=== PATIENT | female | born 1955 | race Caucasian/White ===

== ENCOUNTER 2017-09-28 11:26 | Observation (INO) ==
--- NOTE | 2017-09-28 11:50 | Emergency Department Note ---
Disposition Clinical Impression: SVT (supraventricular tachycardia) Chest pain Qualifiers: Chest pain type: unspecified Qualified Code(s): R07.9 - Chest pain, unspecified Disposition: Admitted As Inpatient Condition: Fair Referrals: Veronika Wheatley MD [Primary Care Provider] - Time of Disposition: 13:35 Arrhythmia/Palpitations HPI - General Chief Complaint: ED Arrhythmia/Palpitations Stated Complaint: SVT Time Seen by Provider: 09/28/17 11:39 Source: patient, EMS Mode of arrival: EMS Limitations: no limitations Nursing Notes Reviewed: Yes Vital Signs Reviewed: Yes - History of Present Illness HPI Narrative: 62-year-old who comes in complaining of some chest tightness, with heart racing pain in her jaw and near syncopal symptoms. A squad arrived of a placed her on a monitor and she was in SVT with a elevated heart rate. They gave her 6 mg of the [place] without improvement they gave her 12 mg of [place] with conversion to sinus. Patient had resolution of her symptoms. Patient did have a thyroid biopsy 1 week ago. Pt Subjective Complaint: rapid heart beat, "heart racing" Onset (ago): Just [employer] Duration: constant Severity: moderate Context: occurred during rest Arrhythmia History: other (Patient had an episode a few years back which had a rapid heartbeat but she does not know the details concerning it.) Associated symptoms: Reports: chest pain Treatments prior to arrival: adenosine - Related Data Home Medications Medication Instructions Recorded Confirmed Amitriptyline [Elavil] 25 mg PO HS 10/21/16 09/28/17 Aspirin [Aspirin] 81 mg PO DAILY 10/21/16 09/28/17 Atorvastatin [Lipitor] 40 mg PO HS 10/21/16 09/28/17 Cholecalciferol (Vitamin D3) 1,000 unit PO DAILY 10/21/16 09/28/17 [Vitamin D] FLUoxetine HCl [PROzac] 20 mg PO DAILY 10/21/16 09/28/17 Lactobacillus Acidophilus 1 cap PO DAILY 10/21/16 09/28/17 [Acidophilus] Meloxicam 15 mg PO DAILY 10/21/16 09/28/17 Mv-Mn/FA/Vit K/Lycop/Lut/Coq10 1 cap PO DAILY 10/21/16 09/28/17 [Daily Multivitamin Capsule] Omeprazole [PriLOSEC] 40 mg PO BID 10/21/16 09/28/17 Potassium Chloride [K-Tab ER] 20 meq PO BID 10/21/16 09/28/17 Spironolactone [Aldactone] 50 mg PO DAILY 10/21/16 09/28/17 Calcium Carbonate/Vitamin D3 1 tab PO BID 11/10/16 09/28/17 [Calcium 600-Vit D3 800 Tablet] Calcium Polycarbophil [Fiber-Caps] 625 mg PO BID 11/10/16 09/28/17 [place]-3S/Dha/Epa/Fish Oil [Fish 1 cap PO DAILY 11/10/16 09/28/17 Oil 1,200 mg Softgel] Albuterol Sulfate [Albuterol 2 puff IH Q6H PRN 12/18/16 09/28/17 Inhaler] DiphenhydraMINE [Benadryl] 25 mg PO Q6HR PRN 02/19/17 09/28/17 Fluticasone Propionate [Flovent 2 puff IH DAILY 09/22/17 09/28/17 Diskus] Ipratropium/Albuterol Neb [Duoneb] 3 ml IH BID 09/22/17 09/28/17 Metoprolol [Lopressor] 50 mg PO DAILY 09/28/17 09/28/17 Umeclidinium [place] [Incruse 1 puff IH DAILY 09/28/17 09/28/17 Ellipta] Allergies Allergy/AdvReac Type Severity Reaction Status Date / Time Hydromorphone [From Dilaudid] Allergy Difficulty Verified 09/28/17 14:05 Breathing levofloxacin [From Levaquin] Allergy See Verified 09/28/17 14:05 Comments Penicillins Allergy Rash Verified 09/28/17 14:05 Tetracycline Allergy Rash Verified 09/28/17 14:05 acetaminophen [From Vicodin] AdvReac Itching Verified 09/28/17 14:05 codeine AdvReac Itching Verified 09/28/17 14:05 fentanyl AdvReac Itching Verified 09/28/17 14:05 hydrocodone [From Vicodin] AdvReac Itching Verified 09/28/17 14:05 morphine AdvReac Itching Verified 09/28/17 14:05 All systems ED: reviewed and negative except as stated. Constitutional: Denies: fever, chills, weakness, weight change Eyes: Denies: eye pain, eye discharge, vision change ENT ED: Denies: ear pain, throat pain, dental pain, hearing loss, epistaxis, congestion, dysphagia Cardiovascular: Reports: palpitations. Denies: chest pain, dyspnea on exertion , edema, syncope Respiratory: Denies: cough, dyspnea, wheezes, hemoptysis, stridor Gastrointestinal: Denies: abdominal pain, nausea, vomiting, diarrhea, constipation, hematemesis, melena, hematochezia Genitourinary: Denies: dysuria, frequency, hematuria, discharge Musculoskeletal: Denies: back pain, neck pain, arthralgia, myalgia Integumentary: Denies: rash, abrasion, lesions Neurological: Denies: headache, weakness, numbness, paresthesias, confusion, abnormal gait, vertigo Psychiatric: Denies: anxiety, depression, suicidal thoughts, homicidal thoughts , auditory hallucinations, visual hallucinations Endocrine: Denies: fatigue Hematological/Lymphatic: Denies: easy bleeding, easy bruising Allergic/Immunologic: Denies: facial swelling, urticaria Past Medical History - Past Medical History Medical history: Reports: arthritis, fibromyalgia, GERD, hyperlipidemia, hypertension Surgical history: Reports: appendectomy, cholecystectomy, hysterectomy, other Psychiatric history: Reports: anxiety, depression - Social History Smoking Status: Current every day smoker Smokeless Tobacco Status: No Alcohol use: Reports: none Drug use: Reports: none Physical Exam - General Limitations: no limitations General appearance: alert, in no apparent distress - Head Head exam: atraumatic, normocephalic, normal inspection - Eye Eye exam: Present: normal appearance, PERRL, EOMI - ENT ENT exam: normal exam, normal oropharynx, mucous membranes moist - Neck Neck exam: Present: normal inspection, full ROM, trachea midline - Chest Chest inspection: Present: normal inspection, symmetric chest wall rise - Respiratory Respiratory exam: Present: normal lung sounds bilaterally - Cardiovascular Cardiovascular exam: Present: regular rate, normal rhythm, tachycardia - Abdominal Exam Abdominal exam: Present: soft, Non-Tender. Absent: tenderness, distention, guarding, rebound, rigidity - Extremities Exam Extremities exam: Present: normal inspection, full ROM. Absent: tenderness, pedal edema - Expanded Lower Extremity Exam Neurovascular/Tendon exam: Absent: motor deficit, sensory deficit, tendon deficit Gait: observed and normal - Back Exam Back exam: Present: normal inspection, full ROM. Absent: tenderness - Neurological Exam Neurological exam: Present: alert, oriented X3 - Psychiatric Psychiatric exam: Present: normal affect, normal mood - Skin Skin exam: Present: warm, dry, intact, normal color Course - Reevaluation(s) Reevaluation #1: 62-year-old who has multiple risk factors who developed SVT and with the SVT had chest pain into her neck. Rotation obtained with cardiology who feels that if she was active and prior to the episode that she could likely go home however the patient states she is not very active she recently had surgery for removal part of her lung which has resulted in her always being short of breath. Also she is going to be admitted to rule out cardiac etiology chest discomfort. Time: 13:34 - Consultations Consultation #1: Discussed with , he states that if the patient is very active and has no pain or shortness of breath prior to this episode she can likely go home however the patient is not active just recently had lung surgery and is always short of breath due to that sort of go ahead and admit with consultation to cardiology. Time: 13:33 Consultation #2: Discussed with Dr. Portillo, admit. Time: 14:28 Vital Signs Temperature 98.2 F 09/28/17 11:31 Pulse Rate 94 09/28/17 11:31 Respiratory Rate 12 09/28/17 11:31 Blood Pressure 127/90 09/28/17 11:31 O2 Sat by Pulse Oximetry 96 09/28/17 11:31 Temperature 98.2 F 09/28/17 11:31 Pulse Rate 78 09/28/17 12:54 Respiratory Rate 15 09/28/17 12:54 Blood Pressure 106/78 09/28/17 12:54 O2 Sat by Pulse Oximetry 97 09/28/17 12:54 Oxygen Delivery Oxygen Delivery Room Air Arrhythmia/Palpitations - Lab Data Result diagrams: 09/28/17 12:00 09/28/17 12:00 Lab Results 09/28/17 09/28/17 09/28/17 Range/Units 12:00 12:00 12:00 WBC 4.7 (4.3-11.1) K/mcL RBC 4.52 (3.82-4.97) M/mcL Hgb 13.4 (11.5-15.4) g/dL Hct 39.9 (35.3-44.9) % MCV 88.3 (83.0-100.0) fL MCH 29.6 (28.0-33.3) pg MCHC 33.6 (31.6-35.5) g/dL RDW 13.2 (11.5-14.5) % Plt Count 249 (140-400) K/mcL MPV 10.6 (9.4-12.4) fL Immature Gran % 0.2 (0-4) % Seg Neutrophils % 56.2 % Lymphocytes % 31.8 % Monocytes % 8.6 % Eosinophils % 2.6 % Basophils % 0.6 % Neutrophils # 2.6 (1.6-8.9) K/mcL Lymphocytes # 1.5 (0.6-4.6) K/mcL Monocytes # 0.4 (0.0-1.3) K/mcL Eosinophils # 0.1 (0.0-0.6) K/mcL Basophils # 0.0 (0.0-0.2) K/mcL PT 11.3 (9.4-12.1) Seconds INR 1.1 APTT 30.5 (26.0-36.0) Seconds Sodium (136-145) mEq/L Potassium (3.5-5.1) mEq/L Chloride (98-107) mEq/L Carbon Dioxide (23-29) mEq/L BUN (8-23) mg/dL Creatinine (0.60-1.20) mg/dL Est GFR ( Amer) (> 60) Est GFR (Non-Af Amer) (> 60) BUN/Creatinine Ratio (6-26) Glucose (70-105) mg/dL Calculated Osmolality (280-300) Calcium (8.6-10.3) mg/dL Troponin I (< 0.04) ng/mL TSH 1.371 (0.340-5.600) mcIU/mL 09/28/17 Range/Units 12:00 WBC (4.3-11.1) K/mcL RBC (3.82-4.97) M/mcL Hgb (11.5-15.4) g/dL Hct (35.3-44.9) % MCV (83.0-100.0) fL MCH (28.0-33.3) pg MCHC (31.6-35.5) g/dL RDW (11.5-14.5) % Plt Count (140-400) K/mcL MPV (9.4-12.4) fL Immature Gran % (0-4) % Seg Neutrophils % % Lymphocytes % % Monocytes % % Eosinophils % % Basophils % % Neutrophils # (1.6-8.9) K/mcL Lymphocytes # (0.6-4.6) K/mcL Monocytes # (0.0-1.3) K/mcL Eosinophils # (0.0-0.6) K/mcL Basophils # (0.0-0.2) K/mcL PT (9.4-12.1) Seconds INR APTT (26.0-36.0) Seconds Sodium 138 (136-145) mEq/L Potassium 4.5 (3.5-5.1) mEq/L Chloride 105 (98-107) mEq/L Carbon Dioxide 25 (23-29) mEq/L BUN 14 (8-23) mg/dL Creatinine 0.82 (0.60-1.20) mg/dL Est GFR ( Amer) > 60 (> 60) Est GFR (Non-Af Amer) > 60 (> 60) BUN/Creatinine Ratio 17 (6-26) Glucose 94 (70-105) mg/dL Calculated Osmolality 286 (280-300) Calcium 9.9 (8.6-10.3) mg/dL Troponin I 0.03 (< 0.04) ng/mL TSH (0.340-5.600) mcIU/mL
[2017-09-28 12:18] LABS: Basophils % 0.6 %; Eosinophils # 0.1 K/mcL (0.0-0.6); Eosinophils % 2.6 %; Hematocrit 39.9 % (35.3-44.9); Hemoglobin 13.4 g/dL (11.5-15.4); Immature Granulocytes % 0.2 % (0-4); Lymphocytes # 1.5 K/mcL (0.6-4.6); Lymphocytes % 31.8 %; Mean Corpuscular HGB Conc 33.6 g/dL (31.6-35.5); Mean Corpuscular Hemoglobin 29.6 pg (28.0-33.3); Mean Corpuscular Volume 88.3 fL (83.0-100.0); Mean Platelet Volume 10.6 fL (9.4-12.4); Monocytes # 0.4 K/mcL (0.0-1.3); Monocytes % 8.6 %; Neutrophils # 2.6 K/mcL (1.6-8.9); Platelet Count 249 K/mcL (140-400); Red Blood Count 4.52 M/mcL (3.82-4.97); Red Cell Distribution Width 13.2 % (11.5-14.5); Segmented Neutrophils % 56.2 %
[2017-09-28 12:24] LABS: INR 1.1; Prothrombin Time 11.3 Seconds (9.4-12.1)
[2017-09-28 12:26] LABS: Activated Partial Thrombo Time 30.5 Seconds (26.0-36.0)
[2017-09-28 12:44] LABS: Troponin I 0.03 ng/mL (< 0.04)
[2017-09-28 12:45] LABS: BUN/Creatinine Ratio 17 (6-26); Blood Urea Nitrogen 14 mg/dL (8-23); Calcium 9.9 mg/dL (8.6-10.3); Carbon Dioxide 25 mEq/L (23-29); Chloride 105 mEq/L (98-107); Glucose 94 mg/dL (70-105); Osmolality,Calculated 286 (280-300); Potassium 4.5 mEq/L (3.5-5.1); Sodium 138 mEq/L (136-145); eGFR For African Americans > 60 (> 60); eGFR For Non-African Americans > 60 (> 60)
[2017-09-28] MEDS ORDERED: Naloxone 0.4 MG/ML INJ IVP PRN (15:31)
[2017-09-28] MEDS ORDERED: Nitroglycerin 0.4 MG TAB.SUBL SL PRN (15:39)
--- NOTE | 2017-09-28 16:58 | Electrocardiograph Report ---
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
--- NOTE | 2017-09-28 17:32 | Internal Med History&Physical ---
Date of Encounter: 09/28/17 Time of Encounter: 14:00 Assessment and Plan (1) Chest pain Current visit: Yes Status: Acute Acute chest pressure that pt. reports extends across her chest and radiates to her bilateral neck and jaws. States this has also happened before. Pt. takes daily aspirin but denies previous cardiac hx of SD or stents. Previous echocardiogram in 2016 showed normal LV chamber size, wall thickness, and systolic function. LVEF 65%. Normal right ventricular structure and function. No evidence of intracardiac shunting with agitated saline contrast. No significant valvular dysfunction. No evidence of pulmonary hypertension. Initial troponin <0.03. Trend x2. Aspirin. Lipitor 80 mg now. Nitro SL PRN. Echocardiogram ordered. Bilateral carotid Doppler imaging ordered. Cardiology consult ordered and I appreciate the consult. Will defer stress test recommendation to Cardiology d/t SVTs. NPO at midnight in case of a.m. stress test. Pt. reports preference for pharm stress test d/t RUL lobectomy d/t lung cancer and SOB. Pt. discussed w/Dr. Portillo who agrees w/plan of care. Pt. is high risk for cardiac event based on current sx, SVTs, hx, and risk factors. Observation. Qualifiers: Chest pain type: other chest pain Qualified Code(s): R07.89 - Other chest pain; R07.8 - Other chest pain (2) SVT (supraventricular tachycardia) Current visit: Yes Status: Acute Acute SVT that began this morning. Pt. reports previous sx in 2009. Pt. given adenosine dosing x2 in squad and converted to sinus rhythm. Cardiology consulted and I appreciate the consult. Repeat EKG. Echocardiogram ordered. (3) GERD (gastroesophageal reflux disease) Current visit: Yes Status: Chronic Hx of chronic GERD. Continue pts. Prilosec. Qualifiers: Esophagitis presence: esophagitis presence not specified Qualified Code(s) : K21.9 - Gastro-esophageal reflux disease without esophagitis (4) HTN (hypertension) Current visit: Yes Status: Chronic Hx of chronic HTN. Monitor pt. and VS. Continue pts. Spironolactone and Lopressor. Qualifiers: Hypertension type: essential hypertension Qualified Code(s): I10 - Essential (primary) hypertension (5) HLD (hyperlipidemia) Current visit: Yes Status: Chronic Hx of chronic HLD. Lipid panel in a.m. labs. Continue pts. Lipitor. Qualifiers: Hyperlipidemia type: pure hypercholesterolemia Qualified Code(s): E78.00 - Pure hypercholesterolemia, unspecified; E78.0 - Pure hypercholesterolemia (6) Arthritis Current visit: Yes Status: Chronic Hx of chronic arthritis and fibromyalgia. Continue pts. Meloxicam. (7) Anxiety and depression Current visit: Yes Status: Chronic Hx of chronic anxiety and depression. Continue pts. Prozac and Elavil. (8) Hx of cancer of lung Current visit: Yes Status: Resolved Hx of lung cancer requiring lobectomy of RUL. Pt. reports SOB associated w/ lobectomy. Supplemental O2 and SpO2 monitoring PRN. If stress test ordered by Cardiology, pt. prefers pharmacological testing d/t SOB. Continue pts. DuoNebs and inhalers. (9) DVT prophylaxis Current visit: Yes Status: Acute Heparin 5,000 units SQ Q8 for DVT prophylaxis. Monitor pt. for signs of bleeding. Internal Medicine - H&P: HPI Chief complaint: Heart arrhythmia/Palpitations Admitted From: Emergency Dept Plans for Post Hospital Care: Home History of present illness: Ms. Dos Santos is a 62 year old female w/PMH of arthritis, fibromyalgia, GERD, hyperlipidemia, hypertension, thyroid nodules, and history of lung cancer requiring an upper right lobectomy presents from the ED w/chief complaint of heart palpitations and arrhythmia that began at 9:30 a.m. today. Pt. reports previous sx in 2009. Pt. also reports chest pressure across her chest w/ radiation to bilateral neck and jaws. Pt. reports squad gave her two rounds of adenosine w/conversion to sinus after second dose. Pt. reports thyroid biopsy 1 week ago for nodules and previous lobectomy of RUL of lung for lung cancer. Pt. reports smoking 1.5 PPD and quitting in November 2016. Pt. denies recent illness, fever, chills, nausea, vomiting, changes in vision, headache, cough, unusual bleeding, abdominal pain, diarrhea, constipation, numbness, tingling, dizziness , lightheadedness, pre-syncope, or syncope. Past Med Surg Social Fam HX - Past Medical History Source: patient, old records reviewed, obtained from family Medical history: arthritis, fibromyalgia, GERD, hyperlipidemia, hypertension Psychiatric history: anxiety, depression - Past Surgical History Surgical History: appendectomy, cholecystectomy, hysterectomy (Total), other - Social History Smoking Status: Former smoker Packs per day: 1.5 PPD - Reports quitting in November 2016 Smokeless Tobacco Status: No Alcohol use: none Drug use: none Current living situation: Home, With Family Activity Level: Independent ambulation Recent Out of Country Travel Within the Last 8 Weeks: No Exposure or Possible Exposure to Illness During Travel: No - Family History Mother Race: Family Member Ethnicity: Non- Living Status: Age at : 69 Cause of : Colon cancer Hx Family Cancer: Yes (Colon) Hx Family GI Disorders: Yes (Colon cancer) Father Race: Family Member Ethnicity: Non- Living Status: Age at : 76 Cause of : Chronic lymphocytic leukemia Hx Family Cardiac Disorders: Yes (HD, aortic regurgitation) Hx Family Respiratory Disorders: Yes (Asthma) Hx Family Cancer: Yes (CLL) Sister Race: Family Member Ethnicity: Non- Living Status: Still Living Hx Family Cardiac Disorders: Yes (Aortic regurgitation) Hx Family Musculoskeletal Disorders: Yes (Psoriatic arthritis) Internal Medicine - H&P: Meds Amitriptyline [Elavil] 25 mg PO HS 10/21/16 [History] Aspirin [Aspirin] 81 mg PO DAILY 10/21/16 [History] Atorvastatin [Lipitor] 40 mg PO HS 10/21/16 [History] Cholecalciferol (Vitamin D3) [Vitamin D] 1,000 unit PO DAILY 10/21/16 [History] FLUoxetine HCl [PROzac] 20 mg PO DAILY 10/21/16 [History] Lactobacillus Acidophilus [Acidophilus] 1 cap PO DAILY 10/21/16 [History] Meloxicam 15 mg PO DAILY 10/21/16 [History] Mv-Mn/FA/Vit K/Lycop/Lut/Coq10 [Daily Multivitamin Capsule] 1 cap PO DAILY 10/21 [History] Omeprazole [PriLOSEC] 40 mg PO BID 10/21/16 [History] Potassium Chloride [K-Tab ER] 20 meq PO BID 10/21/16 [History] Spironolactone [Aldactone] 50 mg PO DAILY 10/21/16 [History] Calcium Carbonate/Vitamin D3 [Calcium 600-Vit D3 800 Tablet] 1 tab PO BID [History] Calcium Polycarbophil [Fiber-Caps] 625 mg PO BID 11/10/16 [History] [place]-3S/Dha/Epa/Fish Oil [Fish Oil 1,200 mg Softgel] 1 cap PO DAILY 11/10/16 [ History] Albuterol Sulfate [Albuterol Inhaler] 2 puff IH Q6H PRN 12/18/16 [History] DiphenhydraMINE [Benadryl] 25 mg PO Q6HR PRN 02/19/17 [History] Fluticasone Propionate [Flovent Diskus] 2 puff IH DAILY 09/22/17 [History] Ipratropium/Albuterol Neb [Duoneb] 3 ml IH BID 09/22/17 [History] Metoprolol [Lopressor] 50 mg PO DAILY 09/28/17 [History] Umeclidinium [place] [Incruse Ellipta] 1 puff IH DAILY 09/28/17 [History] 3 Allergy/AdvReac Type Severity Reaction Status Date / Time Hydromorphone [From Dilaudid] Allergy Difficulty Verified 09/28/17 14:05 Breathing levofloxacin [From Levaquin] Allergy See Verified 09/28/17 14:05 Comments Penicillins Allergy Rash Verified 09/28/17 14:05 Tetracycline Allergy Rash Verified 09/28/17 14:05 acetaminophen [From Vicodin] AdvReac Itching Verified 09/28/17 14:05 codeine AdvReac Itching Verified 09/28/17 14:05 fentanyl AdvReac Itching Verified 09/28/17 14:05 hydrocodone [From Vicodin] AdvReac Itching Verified 09/28/17 14:05 morphine AdvReac Itching Verified 09/28/17 14:05 All Systems PM: A 10-system review of systems was performed and is negative for pertinent findings except as documented above in the HPI. - Constitutional Constitutional: no chills, no fever(s), no night sweats - EENT Eyes: no change in vision, no discharge, no pain, no photophobia Ears: no ear discharge, no ear pain, no tinnitus Nose, mouth and throat: no dysphagia, no nasal discharge, no neck pain, no sore throat - Breasts Breasts: as per HPI - Cardiovascular Cardiovascular ROS IM: chest pain (Pressure across chest w/radiation to bilateral neck and jaws.), irregular heart rhythm, palpitations, no diaphoresis , no dyspnea, no lightheadedness, no syncope - Respiratory Respiratory: no cough, no dyspnea, no wheezing, no excessive phlegm production - Gastrointestinal Gastrointestinal: no abdominal pain, no diarrhea, no hematemesis, no hematochezia, no melena, no nausea, no vomiting - Genitourinary Genitourinary: no change in urinary stream, no dysuria, no flank pain, no hematuria Menstruation: as per HPI, post hysterectomy (Total) - Musculoskeletal Musculoskeletal ROS IM: no numbness, no tingling - Integumentary Integumentary IM: no rash, no unusual bruising - Neurological Neurological ROS: no confusion, no convulsions, no focal weakness, no numbness, no tingling, no tremor(s) - Psychiatric Psychiatric: as per HPI, anxiety, depression - Endocrine Endocrine IM: as per HPI - Hematologic/Lymphatic Hematologic/Lymphatic: no easy bruising - Allergic/Immunologic Allergic/Immunologic: as per HPI - Constitutional Vitals: Temp Pulse Resp BP Pulse Ox 98.1 F 74 17 138/89 94 09/28/17 15:49 09/28/17 15:49 09/28/17 15:49 09/28/17 15:49 09/28/17 15:49 General appearance: Present: cooperative, A&O X 3, morbidly obese, pleasant, no acute distress, answers questions appropriately - Head Head exam: Present: atraumatic, normocephalic - Eye Eye exam: Present: PERRL, conjuntiva pink, sclera anicteric Pupils: Present: PERRL - ENT ENT exam: Present: normal exam - Neck Neck exam general surgery: Present: normal inspection, supple, trachea midline. Absent: lymphadenopathy - Respiratory Respiratory exam: Present: CTAB. Absent: accessory muscle use, rales, rhonchi, wheezes - Cardiovascular Cardiovascular exam: Present: RRR, +S1, +S2. Absent: diastolic murmur, gallop, rubs, systolic murmur - GI/Abdominal GI/Abdominal exam: Present: normal bowel sounds, soft, no peritoneal signs. Absent: distended, tenderness - Rectal Rectal exam: Present: deferred - Additional comments: exam deferred. - Extremities Exam Extremities exam: Present: pedal edema, warm, radial pulses palpable and symmetrical. Absent: calf tenderness, cyanotic - Back Exam Back exam: Present: normal inspection - Neurological Exam Neurological exam: Present: CN II-XII intact, oriented X3, no focal deficits. Absent: pronater drift, facial droop, speech deficit - Psychiatric Psychiatric exam: Present: normal affect, normal mood - Skin Skin exam: Present: dry, intact Internal Med - H&P Results - Labs CBC & Chem 7: 09/28/17 12:00 09/28/17 12:00 - EKG Data EKG shows normal: sinus rhythm - EKG Data Prior EKG available for review: yes Interpretation IM: normal EKG EKG comments: 09/28/17 17:40 EKG dated 09/10/15 shows sinus rhythm. EKG dated 09/28/17 shows sinus rhythm and normal ECG. - Diagnostic Studies Chest x-ray Additional comments: Impressions Chest X-Ray 09/28/17 11:47 IMPRESSION: No acute abnormality. D/ / Darvin Muñiz MD / Darvin Muñiz MD Interpreting Provider: Darvin Muñiz MD
[2017-09-28] MEDS ORDERED: *HR* Heparin 5,000 UNIT/ML VIAL IVP PRN ×2 (18:37)
[2017-09-28] MEDS ORDERED: *HR* Heparin 5,000 UNIT/ML VIAL IVP ONE (18:37)
[2017-09-28] MEDS: Heparin 25,000 UNIT/500 ML D5W 25,000 UNIT/500 ML BAG IVC SCH (19:21)
[2017-09-28] MEDS: Ipratropium/Albuterol Neb 3 ML IH SCH (19:49)
[2017-09-28] MEDS ORDERED: *HR* Heparin 5,000 UNIT/ML VIAL SQ SCH (22:00)
[2017-09-29 01:01] LABS: Basophils % 0.5 %; Eosinophils # 0.2 K/mcL (0.0-0.6); Eosinophils % 2.5 %; Hematocrit 38.5 % (35.3-44.9); Hemoglobin 13.1 g/dL (11.5-15.4); Immature Granulocytes % 0.3 % (0-4); Lymphocytes # 2.8 K/mcL (0.6-4.6); Lymphocytes % 46.2 %; Mean Corpuscular Volume 88.3 fL (83.0-100.0); Mean Platelet Volume 10.6 fL (9.4-12.4); Monocytes # 0.7 K/mcL (0.0-1.3); Monocytes % 11.5 %; Neutrophils # 2.4 K/mcL (1.6-8.9); Platelet Count 242 K/mcL (140-400); Red Blood Count 4.36 M/mcL (3.82-4.97); Red Cell Distribution Width 13.3 % (11.5-14.5)
[2017-09-29 01:31] LABS: Alanine Aminotransferase 41 Units/L (7-52); Albumin 4.4 g/dL (3.5-5.7); Albumin/Globulin Ratio 1.8 (1.1-2.2); Alkaline Phosphatase 70 Units/L (34-104); Aspartate Amino Transferase 26 Units/L (13-39); BUN/Creatinine Ratio 16 (6-26); Bilirubin,Total 0.6 mg/dL (0.3-1.0); Blood Urea Nitrogen 15 mg/dL (8-23); Carbon Dioxide 27 mEq/L (23-29); Chloride 104 mEq/L (98-107); Chol/HDL Ratio 2.6 (0-4.9); Cholesterol 138 mg/dL (< 200); Globulin 2.4 g/dL (2.4-3.5); Glucose 94 mg/dL (70-105); HDL Cholesterol 53 mg/dL (40-59); LDL Cholesterol,Calculated 52 mg/dL (0-99); Magnesium 1.9 mg/dL (1.6-2.6); Osmolality,Calculated 289 (280-300); Potassium 3.8 mEq/L (3.5-5.1); Sodium 139 mEq/L (136-145); Total Protein 6.8 g/dL (6.4-8.9); Triglycerides 165 mg/dL (< 150); eGFR For African Americans > 60 (> 60); eGFR For Non-African Americans > 60 (> 60)
[2017-09-29] MEDS: Beclomethasone 80mcg MDI IH SCH ×2 (08:01→19:42)
[2017-09-29] MEDS: Ipratropium/Albuterol Neb 3 ML IH SCH ×2 (08:01→19:42)
--- NOTE | 2017-09-29 09:46 | Cardiology Consult Note ---
<Blanche Bray - Last Filed: 09/29/17 10:43> Date of Encounter: 09/29/17 Time of Encounter: 09:20 Assessment and Plan (1) Chest pain Current Visit: Yes Status: Acute Chest pain that was retrosternal and radiated to neck. Associated lightheadedness, diaphoresis, blurry vision. Was in SVT at the time that converted back to sinus rhythm after adenosine 6mg and 12mg. PMH HTN, HLD, RUL lobectomy due to lung cancer. Reported [facility] in 2009 with no stents, she had palpitations then too. ECHO 2016: LVEF 65%, no significant valvular dysfunction or pulmonary hypertension Troponin 0.03, 0.19, 0.13 (trending down) -Echo and carotid doppler are pending -stress test ordered -continue heparin Qualifiers: Chest pain type: other chest pain Qualified Code(s): R07.89 - Other chest pain; R07.8 - Other chest pain (2) SVT (supraventricular tachycardia) Current Visit: Yes Status: Acute Acute SVT that was converted back to sinus rhythm after given adenosine 6mg and 12mg (3) HTN (hypertension) Current Visit: Yes Status: Chronic blood pressure stable continue home meds of asa, aldactone, lopressor Qualifiers: Hypertension type: essential hypertension Qualified Code(s): I10 - Essential (primary) hypertension (4) HLD (hyperlipidemia) Current Visit: Yes Status: Chronic continue home lipitor Qualifiers: Hyperlipidemia type: pure hypercholesterolemia Qualified Code(s): E78.00 - Pure hypercholesterolemia, unspecified; E78.0 - Pure hypercholesterolemia Discussion w patient/family: The assessment and plan as outlined above was discussed with the patient and/or family members who expressed understanding and agreement. All questions were answered. Thank you for involving us in the care of your patient. Please call with any questions. History of Present Illness Consult date: 09/29/17 Requesting physician: Jamie Mar Consult reason: Chest pain into jaw during SVT, multiple risk factors. Chief complaint: palpitations History of present illness: Ms. Dos Santos is a 62 year old female HTN, HLD, lung cancer with RUL lobectomy in 11/2016 who presented to [facility] complaining of heart palpitations. She stated that is happened in the afternoon while she was doing laundry. She later went to an urgent care where EMS was called due to tachycardia. She was found to be in SVT and was given adenosine 6mg and 12mg after which to converted back to sinus rhythm. She reported having chest pressure with radiation to neck. She was also having associated lightheadedness, diaphoresis. She reported in 2009 she had palpitations and ended up having a heart cath but no stents were placed. She had a thyroid nodule biopsy 8 days ago. She denies having chest pain or palpitations on a regular basis. EKG in ED was normal sinus rhythm. Troponin 0.03, 0.19. Patient was started on heparin. Past Med Surg Social Fam HX - Past Medical History Medical history: arthritis, fibromyalgia, GERD, hyperlipidemia, hypertension Psychiatric history: anxiety, depression - Past Surgical History Surgical History: appendectomy, cholecystectomy, hysterectomy (Total), other - Social History Smoking Status: Former smoker Packs per day: 1.5 PPD - Reports quitting in November 2016 Smokeless Tobacco Status: No Alcohol use: none Drug use: none - Family History Mother Race: Family Member Ethnicity: Non- Living Status: Age at : 69 Cause of : Colon cancer Hx Family Cardiac Disorders: No Hx Family Respiratory Disorders: No Hx Family Cancer: Yes (Colon) Hx Family GI Disorders: Yes (Colon cancer) Hx Family Genitourinary Disorders: No Hx Family Endocrine Disorder: No Hx Family Musculoskeletal Disorders: No Hx Family Neuromuscular Disorders: No Hx Family Neurologic Disorders: No Hx Family HEENT Disorders: No Hx Family Autoimmune Disorders: No Hx Family Reproductive Disorders: No Hx Family Psychosocial Disorders: No Hx Family Medical Disorders: No Father Race: Family Member Ethnicity: Non- Living Status: Age at : 76 Cause of : Chronic lymphocytic leukemia Hx Family Cardiac Disorders: Yes (HD, aortic regurgitation) Hx Family Respiratory Disorders: Yes (Asthma) Hx Family Cancer: Yes (CLL) Sister Race: Family Member Ethnicity: Non- Living Status: Still Living Hx Family Cardiac Disorders: Yes (Aortic regurgitation) Hx Family Musculoskeletal Disorders: Yes (Psoriatic arthritis) Medications and Allergies Amitriptyline [Elavil] 25 mg PO HS 10/21/16 [History] Aspirin [Aspirin] 81 mg PO DAILY 10/21/16 [History] Atorvastatin [Lipitor] 40 mg PO HS 10/21/16 [History] Cholecalciferol (Vitamin D3) [Vitamin D] 1,000 unit PO DAILY 10/21/16 [History] FLUoxetine HCl [PROzac] 20 mg PO DAILY 10/21/16 [History] Lactobacillus Acidophilus [Acidophilus] 1 cap PO DAILY 10/21/16 [History] Meloxicam 15 mg PO DAILY 10/21/16 [History] Mv-Mn/FA/Vit K/Lycop/Lut/Coq10 [Daily Multivitamin Capsule] 1 cap PO DAILY 10/21 [History] Omeprazole [PriLOSEC] 40 mg PO BID 10/21/16 [History] Potassium Chloride [K-Tab ER] 20 meq PO BID 10/21/16 [History] Spironolactone [Aldactone] 50 mg PO DAILY 10/21/16 [History] Calcium Carbonate/Vitamin D3 [Calcium 600-Vit D3 800 Tablet] 1 tab PO BID [History] Calcium Polycarbophil [Fiber-Caps] 625 mg PO BID 11/10/16 [History] [place]-3S/Dha/Epa/Fish Oil [Fish Oil 1,200 mg Softgel] 1 cap PO DAILY 11/10/16 [ History] Albuterol Sulfate [Albuterol Inhaler] 2 puff IH Q6H PRN 12/18/16 [History] DiphenhydraMINE [Benadryl] 25 mg PO Q6HR PRN 02/19/17 [History] Fluticasone Propionate [Flovent Diskus] 2 puff IH DAILY 09/22/17 [History] Ipratropium/Albuterol Neb [Duoneb] 3 ml IH BID 09/22/17 [History] Metoprolol [Lopressor] 50 mg PO DAILY 09/28/17 [History] Umeclidinium [place] [Incruse Ellipta] 1 puff IH DAILY 09/28/17 [History] 3 Allergy/AdvReac Type Severity Reaction Status Date / Time Hydromorphone [From Dilaudid] Allergy Difficulty Verified 09/28/17 14:05 Breathing levofloxacin [From Levaquin] Allergy See Verified 09/28/17 14:05 Comments Penicillins Allergy Rash Verified 09/28/17 14:05 Tetracycline Allergy Rash Verified 09/28/17 14:05 acetaminophen [From Vicodin] AdvReac Itching Verified 09/28/17 14:05 codeine AdvReac Itching Verified 09/28/17 14:05 fentanyl AdvReac Itching Verified 09/28/17 14:05 hydrocodone [From Vicodin] AdvReac Itching Verified 09/28/17 14:05 morphine AdvReac Itching Verified 09/28/17 14:05 All Systems Review: The remainder of the systems were reviewed and are negative - Constitutional Constitutional: no chills, no fever(s), no headache(s) - EENT Eyes: no blurred vision - Cardiovascular Cardiovascular: diaphoresis, lightheadedness, palpitations, no chest pain with exertion - Respiratory Respiratory: cough - Gastrointestinal Gastrointestinal: no abdominal pain, no nausea - Integumentary Integumentary: no erythema - Neurological Neurological: no dizziness, no memory loss Physical Examination Vital Signs, Last 4 Hours Temp Pulse Resp BP Pulse Ox 09/29/17 07:05 98.3 F 74 16 116/73 94 General: Conversant, No Apparent Distress HEENT: Atraumatic, Mucus Membranes Moist Neck: No JVD Cardiac: Reg Rate and Rhythm Lungs: Normal Breath Sounds Neuro: Alert and responsive, No focal deficits noted Abdomen: Soft, Non-Tender Skin: No rashes noted on visualized skin Musculoskeletal: No Chest Wall Tenderness Extremities: No Edema Results 09/29/17 00:22 09/29/17 00:22 Lab Results 09/28/17 09/29/17 09/29/17 17:27 00:22 00:22 WBC 6.1 Hgb 13.1 Hct 38.5 Plt Count 242 APTT Sodium Potassium Chloride Carbon Dioxide BUN Creatinine Glucose Calcium Magnesium Total Bilirubin AST ALT Alkaline Phosphatase Troponin I 0.19 H* 0.13 H* 09/29/17 09/29/17 09/29/17 00:22 00:22 08:09 WBC Hgb Hct Plt Count APTT 64.2 H D 69.8 H Sodium 139 Potassium 3.8 Chloride 104 Carbon Dioxide 27 BUN 15 Creatinine 0.92 Glucose 94 Calcium 10.0 Magnesium 1.9 Total Bilirubin 0.6 AST 26 ALT 41 Alkaline Phosphatase 70 Troponin I Consult Discharge Plan - Plan Referrals: Veronika Wheatley MD [Primary Care Provider] - <Jose Marrero - Last Filed: 09/29/17 11:56> Date of Encounter: 09/29/17 - Attending Attestation I examined this patient and my medical decision-making was reviewed with the Resident Physician. I agree with the documented findings, disposition and treatment plan as described except to the extent set forth below. 62 YOF with known SVT presented with longer than nml episode associated with SOB , and chest pain. Tropnins elevated to .19 and on downtrend now. Likely reentrant tachycardia since converted with adenosine. Patients strips not available to review. Currently she is on a BB, will titrate up as tolerated and EP consult as an OP. Patient is on inhalers for COPD and will liklely benefit from eval for ablation. Assessment and Plan Discussion w patient/family: The assessment and plan as outlined above was discussed with the patient and/or family members who expressed understanding and agreement. All questions were answered. Thank you for involving us in the care of your patient. Please call with any questions. History of Present Illness History of present illness: Ms. Dos Santos is a 62 year old female All Systems Review: The remainder of the systems were reviewed and are negative Physical Examination Vital Signs, Last 4 Hours Temp Pulse Resp BP Pulse Ox 09/29/17 11:29 98.0 F 92 16 144/83 94 09/29/17 08:01 18 97 Results 09/29/17 00:22 09/29/17 00:22 Lab Results 09/28/17 09/29/17 09/29/17 17:27 00:22 00:22 WBC 6.1 Hgb 13.1 Hct 38.5 Plt Count 242 APTT Sodium Potassium Chloride Carbon Dioxide BUN Creatinine Glucose Calcium Magnesium Total Bilirubin AST ALT Alkaline Phosphatase Troponin I 0.19 H* 0.13 H* 09/29/17 09/29/17 09/29/17 00:22 00:22 08:09 WBC Hgb Hct Plt Count APTT 64.2 H D 69.8 H Sodium 139 Potassium 3.8 Chloride 104 Carbon Dioxide 27 BUN 15 Creatinine 0.92 Glucose 94 Calcium 10.0 Magnesium 1.9 Total Bilirubin 0.6 AST 26 ALT 41 Alkaline Phosphatase 70 Troponin I
[2017-09-29] MEDS: FLUoxetine 20 MG CAPSULE PO SCH (10:02)
[2017-09-29] MEDS: Aspirin 81 MG TAB.CHEW PO SCH (10:02)
[2017-09-29] MEDS: Multivit/Ca/Min/Fe/FA 1 TAB TABLET PO SCH (10:02)
[2017-09-29] MEDS: Lactobacillus 1 EACH CAP.SPRINK PO SCH (10:02)
[2017-09-29] MEDS: Spironolactone 25 MG TABLET PO SCH (10:03)
[2017-09-29] MEDS: Cholecalciferol (D-3) 1,000 UNIT TABLET PO SCH (10:03)
[2017-09-29] MEDS: (Umeclidinium Bromide [Incruse Ellipta] 1 PUFF) IH SCH (10:06)
[2017-09-29] MEDS: FISH OIL PO SCH (10:06)
[2017-09-29] MEDS: EPA PO SCH (10:06)
[2017-09-29] MEDS: DHA PO SCH (10:06)
[2017-09-29] MEDS: OMEGA PO SCH (10:06)
[2017-09-29] MEDS: [UNRECOGNIZED DRUG - OTHER] PO SCH (10:06)
--- NOTE | 2017-09-29 10:06 | Internal Med Progress Note ---
Date of Encounter: 09/29/17 Time of Encounter: 10:06 - Assessment and plan (1) Chest pain Current Visit: Yes Status: Acute Assessment and plan: Patient originally presented with chest pain that radiated across her chest to her neck and jaw. Associated symptoms of lightheadedness diaphoresis.n the ER she was in SV and she converted back to sinus rhythm after adenosine 6 mg and 12 mg. She does have past medical history of hypertension hyperlipidemia RUL lobectomy due to lung cancer. She had a left heart catheter in 2009 with no stents her troponin 0.03 0.19 0.13 Echo and carotid Dopplers are pending Chest chest is ordered Continue with heparin Cardiology consult at [facility] recommendations Qualifiers: Chest pain type: other chest pain Qualified Code(s): R07.89 - Other chest pain; R07.8 - Other chest pain (2) SVT (supraventricular tachycardia) Current Visit: Yes Status: Acute Assessment and plan: Patient presented with SVT and converted back to sinus rhythm after receiving adenosine 6 mg and 12 mg (3) Arthritis Current Visit: Yes Status: Chronic Assessment and plan: Chronic arthritis and fibromyalgia continue with meloxicam (4) GERD (gastroesophageal reflux disease) Current Visit: Yes Status: Chronic Assessment and plan: Continue with Prilosec Qualifiers: Esophagitis presence: esophagitis presence not specified Qualified Code(s) : K21.9 - Gastro-esophageal reflux disease without esophagitis (5) HLD (hyperlipidemia) Current Visit: Yes Status: Chronic Assessment and plan: Continue with statin Qualifiers: Hyperlipidemia type: pure hypercholesterolemia Qualified Code(s): E78.00 - Pure hypercholesterolemia, unspecified; E78.0 - Pure hypercholesterolemia (6) HTN (hypertension) Current Visit: Yes Status: Chronic Assessment and plan: Presently stable Continue home medications Aldactone and Lopressor Qualifiers: Hypertension type: essential hypertension Qualified Code(s): I10 - Essential (primary) hypertension (7) DVT prophylaxis Current Visit: Yes Status: Acute Assessment and plan: On heparin drip (8) Hx of cancer of lung Current Visit: Yes Status: Resolved Assessment and plan: History of lung cancer requiring lumpectomy of right upper lung. Patient reports supplemental oxygen as needed - Time Spent With Patient less than 15 minutes - Subjective Interval history: Presently patient denies any chest pain or shortness of breath awaiting to undergo cardiac stress test - Constitutional Vitals: Temp Pulse Resp BP Pulse Ox 98.3 F 74 18 116/73 97 09/29/17 07:05 09/29/17 07:05 09/29/17 08:01 09/29/17 07:05 09/29/17 08:01 General appearance: Present: cooperative, A&O X 3, morbidly obese, pleasant, no acute distress, answers questions appropriately - Head Head exam: Present: atraumatic, normocephalic - Eye Eye exam: Present: PERRL, conjuntiva pink, sclera anicteric Pupils: Present: PERRL - Neck Neck exam general surgery: Present: supple, trachea midline. Absent: lymphadenopathy - Respiratory Respiratory exam: Present: CTAB. Absent: accessory muscle use, rales, rhonchi, wheezes - Cardiovascular Cardiovascular exam: Present: RRR, +S1, +S2. Absent: diastolic murmur, gallop, rubs, systolic murmur - GI/Abdominal GI/Abdominal exam: Present: normal bowel sounds, soft, no peritoneal signs. Absent: distended, tenderness - Extremities Exam Extremities exam: Present: warm, radial pulses palpable and symmetrical. Absent : calf tenderness, cyanotic, pedal edema - Neurological Exam Neurological exam: Present: CN II-XII intact, oriented X3, no focal deficits. Absent: pronater drift, facial droop, speech deficit - Skin Skin exam: Present: dry, intact Internal Medicine: Result - Labs CBC & Chem 7: 09/29/17 00:22 09/29/17 00:22 Labs: Short CBC 09/29/17 Range/Units 00:22 WBC 6.1 (4.3-11.1) K/mcL Hgb 13.1 (11.5-15.4) g/dL Hct 38.5 (35.3-44.9) % Plt Count 242 (140-400) K/mcL Neutrophils # 2.4 (1.6-8.9) K/mcL BMP 09/29/17 00:22 Sodium 139 Potassium 3.8 Chloride 104 Carbon Dioxide 27 BUN 15 Creatinine 0.92 Glucose 94 Calcium 10.0 Cardiac Enzymes 09/28/17 09/29/17 Range/Units 17:27 00:22 Troponin I 0.19 H* 0.13 H* (< 0.04) ng/mL Liver Function 09/29/17 Range/Units 00:22 Total Bilirubin 0.6 (0.3-1.0) mg/dL AST 26 (13-39) Units/L ALT 41 (7-52) Units/L Alkaline Phosphatase 70 (34-104) Units/L Albumin 4.4 (3.5-5.7) g/dL - ABG Interpretation ABG results: PT/INR, D-dimer PT 11.3 Seconds (9.4-12.1) 09/28/17 12:00 Consult Discharge Plan - Plan Referrals: Veronika Wheatley MD [Primary Care Provider] -
[2017-09-29 10:56] LABS: Estimated Average Glucose 111 mg/dl; Hemoglobin A1C 5.5 %
[2017-09-29] MEDS ORDERED: Regadenoson 0.4 MG/5 ML SYRINGE IVP ONE (11:58)
[2017-09-30] MEDS: Heparin 25,000 UNIT/500 ML D5W 25,000 UNIT/500 ML BAG IVC SCH (01:03)
[2017-09-30 04:19] LABS: Basophils % 0.7 %; Eosinophils # 0.1 K/mcL (0.0-0.6); Eosinophils % 2.5 %; Hematocrit 37.8 % (35.3-44.9); Hemoglobin 12.8 g/dL (11.5-15.4); Immature Granulocytes % 0.2 % (0-4); Lymphocytes # 2.5 K/mcL (0.6-4.6); Lymphocytes % 43.3 %; Mean Corpuscular HGB Conc 33.9 g/dL (31.6-35.5); Mean Corpuscular Hemoglobin 29.9 pg (28.0-33.3); Mean Corpuscular Volume 88.3 fL (83.0-100.0); Mean Platelet Volume 10.8 fL (9.4-12.4); Monocytes # 0.7 K/mcL (0.0-1.3); Monocytes % 11.8 %; Neutrophils # 2.4 K/mcL (1.6-8.9); Platelet Count 230 K/mcL (140-400); Red Blood Count 4.28 M/mcL (3.82-4.97); Red Cell Distribution Width 13.5 % (11.5-14.5); Segmented Neutrophils % 41.5 %
[2017-09-30 04:37] LABS: Alanine Aminotransferase 40 Units/L (7-52); Albumin 4.3 g/dL (3.5-5.7); Albumin/Globulin Ratio 1.9 (1.1-2.2); Alkaline Phosphatase 74 Units/L (34-104); Aspartate Amino Transferase 23 Units/L (13-39); BUN/Creatinine Ratio 23 (6-26); Bilirubin,Total 0.5 mg/dL (0.3-1.0); Blood Urea Nitrogen 19 mg/dL (8-23); Calcium 9.7 mg/dL (8.6-10.3); Carbon Dioxide 25 mEq/L (23-29); Chloride 104 mEq/L (98-107); Globulin 2.3 g/dL (2.4-3.5); Glucose 103 mg/dL (70-105); Osmolality,Calculated 291 (280-300); Potassium 4.1 mEq/L (3.5-5.1); Sodium 139 mEq/L (136-145); Total Protein 6.6 g/dL (6.4-8.9); eGFR For African Americans > 60 (> 60); eGFR For Non-African Americans > 60 (> 60)
[2017-09-30] MEDS: Aspirin 81 MG TAB.CHEW PO SCH (09:19)
[2017-09-30] MEDS: Lactobacillus 1 EACH CAP.SPRINK PO SCH (09:19)
[2017-09-30] MEDS: FLUoxetine 20 MG CAPSULE PO SCH (09:19)
[2017-09-30] MEDS: Cholecalciferol (D-3) 1,000 UNIT TABLET PO SCH (09:19)
[2017-09-30] MEDS: Multivit/Ca/Min/Fe/FA 1 TAB TABLET PO SCH (09:19)
[2017-09-30] MEDS: DHA PO SCH (09:20)
[2017-09-30] MEDS: OMEGA PO SCH (09:20)
[2017-09-30] MEDS: Spironolactone 25 MG TABLET PO SCH (09:20)
[2017-09-30] MEDS: FISH OIL PO SCH (09:20)
[2017-09-30] MEDS: EPA PO SCH (09:20)
[2017-09-30] MEDS: [UNRECOGNIZED DRUG - OTHER] PO SCH (09:20)
[2017-09-30] MEDS: (Umeclidinium Bromide [Incruse Ellipta] 1 PUFF) IH SCH (09:21)
--- NOTE | 2017-09-30 09:31 | Cardiology Progress Note ---
<Blanche Bray - Last Filed: 09/30/17 11:00> Date of Encounter: 09/30/17 Time of Encounter: 08:45 Assessment and Plan (1) Chest pain Status: Acute Chest pain that was retrosternal and radiated to neck. Associated lightheadedness, diaphoresis, blurry vision. Was in SVT at the time that converted back to sinus rhythm after adenosine 6mg and 12mg. PMH HTN, HLD, RUL lobectomy due to lung cancer. Reported LHC in 2009 with no stents, she had palpitations then too. ECHO 2016: LVEF 65%, no significant valvular dysfunction or pulmonary hypertension Troponin 0.03, 0.19, 0.13 (trending down) Patient denies chest pain or palpitations. -Carotid doppler normal b/l -TTE- LVEF60%, mild left ventricular diastolic dysfunction. no valvular disfunction. -Stress test abnormal. Small sized mild intensity stress perfusion defect involving distal anterolateral wall, mild reversible ischemia. recommendations: -plan for cath today -continue heparin -Currently on BB, will titrate up as tolerated -EP consult out patient -On inhalers for COPD and will likely benefit from evaluation for ablation -NPO Qualifiers: Chest pain type: other chest pain Qualified Code(s): R07.89 - Other chest pain; R07.8 - Other chest pain (2) SVT (supraventricular tachycardia) Status: Acute Likely reentrant tachycardia. Acute SVT that was converted back to sinus rhythm after given adenosine 6mg and 12mg (3) HTN (hypertension) Status: Chronic blood pressure stable continue home meds of asa, aldactone, lopressor Qualifiers: Hypertension type: essential hypertension Qualified Code(s): I10 - Essential (primary) hypertension (4) HLD (hyperlipidemia) Status: Chronic continue home lipitor Qualifiers: Hyperlipidemia type: pure hypercholesterolemia Qualified Code(s): E78.00 - Pure hypercholesterolemia, unspecified; E78.0 - Pure hypercholesterolemia Discussion w patient/family: The assessment and plan as outlined above was discussed with the patient and/or family members who expressed understanding and agreement. All questions were answered. Thank you for involving us in the care of your patient. Please call with any questions. Subjective Principal diagnosis: chest pain Interval history: Patient seen and examined at bedside. She denies chest pain or palpitations. Carotid doppler normal b/l TTE- LVEF60%, mild left ventricular diastolic dysfunction. no valvular disfunction. Stress test pending. Objective Vital Signs, Last 4 Hours Temp Pulse Resp BP Pulse Ox 09/30/17 07:27 98.2 F 73 18 124/88 95 General: Conversant, No Apparent Distress HEENT: Atraumatic, Mucus Membranes Moist Neck: No JVD Cardiac: Reg Rate and Rhythm, Normal S1 and S2 Lungs: Normal Breath Sounds, No Wheeze, Rales, Rhonchi Neuro: Alert and responsive, No focal deficits noted Abdomen: Soft, Non-Tender Skin: No rashes noted on visualized skin Musculoskeletal: No Chest Wall Tenderness Extremities: No Edema Results 09/30/17 03:34 09/30/17 03:34 Lab Results 09/30/17 09/30/17 09/30/17 03:34 03:34 08:16 WBC 5.7 Hgb 12.8 Hct 37.8 Plt Count 230 APTT 36.8 H Sodium 139 Potassium 4.1 Chloride 104 Carbon Dioxide 25 BUN 19 Creatinine 0.84 Glucose 103 Calcium 9.7 Total Bilirubin 0.5 AST 23 ALT 40 Alkaline Phosphatase 74 Consult Discharge Plan - Plan Instructions: Chest Pain (DC), Left Heart Catheterization (DC) Additional Instructions: RISK FACTORS: STOP SMOKING: If you smoke, STOP. Smoking or tobacco use significantly increases your risk of heart disease because nicotine causes the arteries to narrow or constrict. It also causes fats to stick to the artery. Your chances of having a heart attack are greatly increased if you continue to smoke. For more information, call the education line for smoking cessation 0-085-[id number] EAT A LOW FAT/CHOLESTEROL/SODIUM DIET: This diet may help reduce your chances of having a heart attack. LIFTING: Avoid lifting anything more than 10 pounds for 5-7 days Prior to straining, laughing, sneezing and/or coughing, apply manual pressure directly over insertion site. ACTIVITY: You may walk or climb stairs as tolerated You can resume sexual activity as tolerated In general, you are encouraged to engage in a minimum of 30 minutes or more of moderate intensity physical activity, such as brisk walking, daily or at least 3 -4 times weekly BATHING Do not submerge the site into water (bath tub, hot tub, swimming pool) for 1 week. This can be a source for infection into the blood stream. You may shower after 24 hours SITE CARE: After 24 hours, you may remove the dressing and leave the site open to air. Keep the site clean and dry. Clean gently and pat dry. You can expect bruising and tenderness that gradually resolve within a week or two. Return to work as instructed per your physician Resume driving as instructed per physician Keep all scheduled follow up appointments Resume medications as instructed IMPORTANT: If prescribed a Platelet Aggregation Inhibitor such as, Plavix, Brilinta or Effient: Duration of therapy is minimum one year These medications are often used in combination with Aspirin in prevention of future heart attacks Never discontinue unless consult with your Geographical Historian STROKE (CVA) Risk factors for a stroke are: Age, cigarette smoking, diabetes, excessive alcohol consumption, family history, high blood pressure, overweight, physical inactivity, prior stroke, heart attack, diagnosis of carotid artery stenosis or other artery disease. Warning signs: Sudden numbness or weakness of the face, arm or leg; especially on one side of the body, sudden confusion, trouble speaking or understanding, sudden trouble seeing in one or both eyes, sudden trouble walking, dizziness, loss of balance or coordination, sudden severe headache with no cause. Call 911 or go to the Emergency Room. CONGESTIVE HEART FAILURE: If you have been diagnosed with Congestive Heart Failure (CHF) and your symptoms return, make an appointment with your physician Weigh yourself daily. Notify your physician if you have a weight gain of two or more pounds in one day or five or more pounds in one week. If you experience any difficulty breathing, please call 911 BLEEDING: Although the risk of bleeding is minimal, it can happen. If you have any bleeding from the site, apply firm pressure above the puncture site for 10-15 minutes. If the bleeding does not stop, continue manual pressure and call 911 Contact your physician if: You develop a fever greater than 101 degrees Fahrenheit Your site becomes reddened or has any drainage You have an increase in pain or burning at the site or if a large knot forms at the site. If you experience chest pain, shortness of breath, dizziness, or extreme tiredness, stop the activity and rest. Please notify your physicians office if you experience any of these symptoms and they are not relieved by rest please call 911! Referrals: Wheatley,Veronika M, MD [Primary Care Provider] - (Please call the office to schedule a hospital follow up. Follow up within 1-2 weeks. ) Jose Marrero [Partnered Physician] - (Office will call you with an appt. ) <Jose Marrero - Last Filed: 10/01/17 11:56> Date of Encounter: 10/01/17 Assessment and Plan (1) Chest pain Status: Acute Chest pain that was retrosternal and radiated to neck. Associated lightheadedness, diaphoresis, blurry vision. Was in SVT at the time that converted back to sinus rhythm after adenosine 6mg and 12mg. PMH HTN, HLD, RUL lobectomy due to lung cancer. Reported LHC in 2009 with no stents, she had palpitations then too. ECHO 2016: LVEF 65%, no significant valvular dysfunction or pulmonary hypertension Troponin 0.03, 0.19, 0.13 (trending down) Patient denies chest pain or palpitations. -Carotid doppler normal b/l -TTE- LVEF60%, mild left ventricular diastolic dysfunction. no valvular disfunction. -Stress test abnormal. Small sized mild intensity stress perfusion defect involving distal anterolateral wall, mild reversible ischemia. recommendations: -plan for cath today -continue heparin -Currently on BB, will titrate up as tolerated -EP consult out patient -On inhalers for COPD and will likely benefit from evaluation for ablation -NPO Qualifiers: Chest pain type: other chest pain Qualified Code(s): R07.89 - Other chest pain; R07.8 - Other chest pain Discussion w patient/family: The assessment and plan as outlined above was discussed with the patient and/or family members who expressed understanding and agreement. All questions were answered. Thank you for involving us in the care of your patient. Please call with any questions. I examined this patient and my medical decision-making was reviewed with the Resident Physician. I agree with the documented findings, disposition and treatment plan as described except to the extent set forth below. 62 YOF with SVT and elevated trops with an abn stress test, LHC unremarkable, Patient without severe CAD No further testing, OP follow up with EP for possible ablation Results 09/30/17 03:34 09/30/17 03:34
[2017-09-30] MEDS: Ipratropium/Albuterol Neb 3 ML IH SCH (10:27)
[2017-09-30] MEDS: Beclomethasone 80mcg MDI IH SCH (10:27)
[2017-09-30] MEDS ORDERED: *HR* Midazolam HCl 2 MG/2 ML VIAL ONE (13:23)
[2017-09-30] MEDS ORDERED: 0.9 % Sodium Chloride 1,000 ML ONE (13:23)
--- NOTE | 2017-09-30 13:24 | Pre-Sedation Evaluation ---
Pre-sedation evaluation - Pre-sedation checklist Date of procedure: 09/30/17 Procedure: heart cath Recent Vitals: Last Vital Signs Temp 97.3 F L 09/30/17 10:44 Pulse 115 09/30/17 10:44 Resp 18 09/30/17 10:44 BP 123/83 09/30/17 10:44 Pulse Ox 92 09/30/17 10:44 H&P (including ROS) documented in medical record: Yes Previous reaction to sedatives/anesthetics: No Dietary Status: No solid food in preceding 4 hrs and no liquid in preceding 2 hrs Airway Assessment: Patient can open mouth completely, TMJ function normal Dentition: No loose teeth or bridges Possible difficult airway: No ASA Classification *see protocol: CLASS III-Severe systemic disease Plan of Care: Pt appropriate candidate for procedure/moderate/conscious sedation , Risks/benefits of procedure/sedation discussed w/ patient/family, If not NPO; Risk of intake outweiged by necessity to perform procedure
--- NOTE | 2017-09-30 14:05 | Event Note ---
Date of Encounter: 09/30/17 Time of Encounter: 14:04 - Cardiology Event Note Per discussion with , [facility] with no intervention. Discussed with , cardiology will sign off and will follow in outpatient setting. Will stop heparin drip. Follow up set.
[2017-09-30] MEDS ORDERED: 0.9 % Sodium Chloride 1,000 ML IVC SCH (14:15)
--- NOTE | 2017-09-30 14:40 | Invasive Diagnostic Lab Proc ---
Name: Annette Dos Santos Date of Study: 09/30/2017 Date: 1955 Ht: 64.2in Medical Record#: [id number] Age: 62 Wt: 224.87lb Gender: Female BSA: 2.06 Order #: [id number] BMI: 38.39 Physicians Procedure Physician: Gianni Andrea DO Referring MD: Referring MD: Staff Name Position Time In Brandie Cleary RN Monitor 01:32 PM Poornima Carrasco RN Manufacturer Agent 01:32 PM Kathleen Steel RT (R) Scrub 01:33 PM Indications Indication Abnormal Test - Stress Unstable Angina Procedures Performed Procedure L HRT ARTERY/VENTRICLE ANGIO Pre-Procedure Checklist Informed consent is complete signed and on chart. H&P is on chart. ID band is on and ID verified with patient. Patient NPO for procedure The procedure was described for the patient and questions were answered. Blood Pressure: 110/79 ECG is on chart. Rhythm: NSR Plan of Care Patient will tolerate the procedure without complications. Adequate level of comfort will be maintained. Hemodynamics will remain stable Patient will recover from procedure without complications. Respiratory function will be maintained. Cardiac rhythm will remain stable. Patient temperature will be maintained. Patient and/or family have verbalized understanding of the procedure. Patient Education Chief Complaint/Reason for Test: Cardiac Cath Developmentally Appropriate for Age: Yes Learning Barriers: None Education Needs: Procedure Education Method: Verbal Information Taught: Cardiac Cath Educational Evaluation: Able to repeat information Intravenous Access Time IV Size Location DC'd Fluid/Drip Rate Units RN 12:03 PM 20g 1 1/" Patent On Arrival Lt Antecubital Poornima Carrasco RN Allergies *HR* CODEINE Hydromorphone hydrocodone acetaminophen Nabumetone morphine Penicillins levofloxacin Penicillin codeine *HR* Dilaudid Tetracycline Vital Signs Time BP (mmHg) HR (bpm) O2 Sat. RR (bpm) LOC 12:04 PM 123 / 83 115 92 % 18 5 = Fully awake and oriented or at pre-proc level 01:32 PM / % 5 = Fully awake and oriented or at pre-proc level 01:32 PM / % 5 = Fully awake and oriented or at pre-proc level 01:29 PM 128 / 78 77 99 % 15 01:34 PM 124 / 81 82 99 % 18 01:39 PM 110 / 79 80 98 % 13 01:44 PM 113 / 73 74 99 % 13 01:49 PM 127 / 97 63 96 % 22 01:54 PM 113 / 78 78 100 % 19 01:59 PM 136 / 86 69 96 % 12 Procedural Medications Time Medication Dose Units Method Given By 01:31 PM Oxygen 2 L/min nasal cannula Poornima Carrasco RN 01:39 PM Versed 2 mg Intravenous Poornima Carrasco RN 01:42 PM Lidocaine 2% 10 ml Subcutaneous Gianni Andrea DO ASA Classification: CLASS III- Severe systemic disease (i.e. prior AMI, diabetes with vascular complications, morbid obesity) Lewis Score Preprocedure Postprocedure Activity 2- Moves 4 extremities sustained head lift Activity 2- Moves 4 extremities sustained head lift Circulation 2- SBP +/= 20 points of pre-anesthetic level Circulation 2- SBP +/= 20 points of pre-anesthetic level Consciousness 2- Awake and alert oriented x 3 Consciousness 2- Awake and alert oriented x 3 O2 Saturation 2- Able to maintain O2 satruation of 92% on room air O2 Saturation 2- Able to maintain O2 satruation of 92% on room air Respiratory 2- Able to deep breathe and cough well Respiratory 2- Able to deep breathe and cough well Total Score 10 Total Score 10 Contrast Agent: Isovue Diagnostic Contrast: 40 ml Total Contrast: 40 ml Fluoro Dose: 172 mGy Procedure Log Time Note Enter By 01:04 PM CathStat 01:28 PM Vitals capture started with the following parameters, Patient=Adult, Interval=5 min, Initial Pntzyjgp=171 mmHg, Deflation Rate=5 mmHg, Cuff placed on Right Arm 01:29 PM HR=77 bpm, COHB=189/78 mmhg, SpO2=99.0 %, Resp=15 B/min, Comment=nsr 01:30 PM Pt arrived to laborer yard 2 at 13:30 scoates 01:30 PM Physician arrived 13:30 scoates :31 PM Meet and gredyllan completed scoates :31 PM Sign in performed according to hospital policy. scoates 01:31 PM Procedure start 13:31 scoates 01:31 PM Time: 13:31 Versed 2 mg Intravenous Given by Poornima Carrasco RNoatedejon :31 PM Time: 13:31 Oxygen on at 2 L/min per nasal cannula by Soummers, Poornima RN scoates 01:32 PM Time: 13:32 Patient comfortable and pain free: Yes scoates 01:32 PM Time: 13:32LOC: 5 = Fully awake and oriented or at pre-proc level scoates 01:32 PM Clinical Presentation: Non-STEMI scoates 01:32 PM Patient charges- Angio tray pack, Navilyst 3mm J, Pulse Oximetry and ACIST tubing and transducer scoates 01:32 PM Brandie Cleary RN Position: Monitor Time in: :32 scoates 01:33 PM Poornima Carrasco RN Position: Manufacturer Agent Time in: 13:32 scoates 01:34 PM HR=82 bpm, VNHS=563/81 mmhg, SpO2=99.0 %, Resp=18 B/min, Comment=nsr 01:34 PM Kathleen Steel RT (R) Position: Scrub Time in: :33 scoates 01:36 PM Pressure channel 3 zeroed. 01:37 PM Case Delayed No, inpatient scoates 01:39 PM HR=80 bpm, JPPV=358/79 mmhg, SpO2=98.0 %, Resp=13 B/min, Comment=nsr 01:39 PM Time out performed according to hospital policy scoates 01:42 PM ASA Class CLASS III- Severe systemic disease (i.e. prior AMI, diabetes with vascular complications, morbid obesity) scoates 01:42 PM Time: 13:42 10 ml Lidocaine 2% to right groin Subcutaneous Given by Gianni Andrea DO scoates 01:44 PM HR=74 bpm, BYQZ=226/73 mmhg, SpO2=99.0 %, Resp=13 B/min, Comment=nsr 01:44 PM Micro-Introducer Kit utilized for sheath placement scoates 01:44 PM Unsuccessful access attempt # 1 into the right Femoral artery. Manual pressure applied to achieve hemostasis.. scoates 01:47 PM Access obtained by percutaneous puncture. 6Fr 11cm Terumo [place] sheath placed in right Femoral artery. [id number] scoates 01:47 PM 6Fr FR 4 catheter inserted over the wire DNC scoates 01:47 PM Time: 13:32 Patient comfortable and pain free: Yes scoates 01:47 PM Time: 13:32LOC: 5 = Fully awake and oriented or at pre-proc level scoates 01:47 PM Catheter selectively placed in left ventricle scoates 01:47 PM Catheter selectively placed in left ventricle scoates 01:48 PM Bolus angiogram of left Ventricle complete: hand injected for a total of 5 mls scoates 01:48 PM Recorded Pressure: LV, LV, HR=77, Condition=Condition 1 (Left Ventricle) LV -32/-32/-32, (Left Ventricle) LV 122/-3/3 01:49 PM HR=63 bpm, BATB=355/97 mmhg, SpO2=96.0 %, Resp=22 B/min, Comment=nsr 01:49 PM Recorded Pressure: LV, LV, Ao, HR=83, Condition=Condition 1 (Left Ventricle) LV -32/-32/-32, (Left Ventricle) LV 103/0/5, (Aorta) Ao 146/85/112 01:49 PM RCA angiography performed in multiple views. scoates 01:49 PM Coronary Dominance: right scoates 01:50 PM Catheter removed scoates 01:50 PM 6Fr FL 4 catheter inserted over the wire DNC scoates 01:52 PM Recorded Pressure: LV, Ao, HR=78, Condition=Condition 1 (Left Ventricle) LV -32/-32/-32, (Aorta) Ao 118/67/86 01:54 PM HR=78 bpm, WHXT=473/78 mmhg, NtM6=571.0 %, Resp=19 B/min, Comment=nsr 01:54 PM Catheter removed scoates 01:54 PM Procedure completed at 13:54 scoates 01:54 PM Did you address GREGORY flow and Dominance? Yes scoates 01:55 PM Sign out completed: Radiation Dose 172 mGy Fluoro Time: 1.2 Isovue 370 - 200ml contrast 40 ml given by Gianni Andrea DO. Complications: NoneCardiac Rehab Consult needed: NoConfirmed administered medications: Yes scoates 01:55 PM Isovue 370 - 200ml,1 Bottle(s) used. scoates 01:55 PM Estimated Blood Loss: minimal scoates 01:55 PM Post ECG NSR scoates 01:55 PM Post Blood Pressure 113/78 scoates 01:56 PM 13:56 Post Pulses Bilateral DP & PT 2+ scoates 01:59 PM HR=69 bpm, JXIA=984/86 mmhg, SpO2=96.0 %, Resp=12 B/min, Comment=nsr 02:00 PM Arterial sheath pulled, Angio-seal closure device used and was Successful [id number] S/N. scoates 02:01 PM Post ECG NSR scoates 02:02 PM Post Blood Pressure 136/86 scoates 02:02 PM Information taught Cardiac Cath scoates 02:02 PM Education needs Procedure, Plan of Care, and Responsibilities of Patient in Care scoates 02:02 PM Learning barriers :None scoates 02:02 PM Education Methods Verbal scoates 02:02 PM Education evaluation Able to repeat information scoates 02:05 PM Site status No bleeding/hematoma - Rt Groin as reported by Kathleen Steel RT (R) at 14:02 scoates 02:05 PM Opsite applied scoates 02:05 PM Plavix, Effient or Brilinta given Yes scoates 02:05 PM Delay to floor No scoates 02:05 PM Patient out of room: 14:05 scoates 02:05 PM Family placed in consult room. scoates 02:05 PM Complications: None scoates 02:09 PM Report given to Lizeth TRUJILLO Pt taken to 3B Room #34. 14:09 scoates 02:14 PM Delay to floor No scoates 02:14 PM Patient out of room: 14:14 scoates Complications Complication None None Hemodynamics Pressures Site Systolic/A Wave Diastolic/V Wave Mean LV -32 -32 -32 LV 122 -3 3 LV -32 -32 -32 LV 103 0 5 AO 146 85 112 LV -32 -32 -32 AO 118 67 86 Post Procedure Information Blood Pressure: 136/86 mmHg Rhythm: NSR Post procedural instructions were given Closure Device Time Device Success/Fail 09/30/2017 2:01:00 PM Angio-seal Evolution Successful Site Checks Time Location Status Staff Sheath In? Note 02:02 PM Rt Groin No bleeding/hematoma Kathleen Steel RT (R) Pulses Time Site Pre-Procedure Post-Procedure Note 09/30/2017 12:03:00 PM Bilateral radial 2+ 09/30/2017 12:03:00 PM Bilateral DP & PT 2+ 1:56:00 PM Bilateral DP & PT 2+ Updated by Brandie Yeager RN on 09/30/2017 2:16:27 PM electronically signed on 09/30/2017 2:35:35 PM with status of Final
[2017-09-30 16:13] VITALS: BP 123/76
--- NOTE | 2017-09-30 16:47 | Discharge Summary ---
Orders not resulted at time of discharge: Pending orders 09/28/17 15:31 ECG 12 lead ECG [ECG] Routine 09/29/17 10:54 NM frieda perf SPECT multi [NM] Routine 10/01/17 04:00 Complete Blood Count [HEME] AM 0400 Comprehensive Metabolic Panel AM 0400 10/02/17 04:00 Complete Blood Count [HEME] AM 0400 Comprehensive Metabolic Panel AM 0400 Date of Encounter: 09/30/17 Time of Encounter: 16:43 - Discharge Diagnosis (1) Chest pain Priority: Primary Status: Acute Comments: Patient originally presented with retrosternal chest pain radiating to her neck with associated symptoms of lightheadedness diaphoresis for revision. On presentation she was in SVT which converted back to sinus rhythm after receiving adenosine 6 mg and 12 mg. She was initiated on a heparin drip which was stopped per cardiology She underwent a cardiac stress test which was abnormal-small sized mild intensity stress perfusion defect involving distal anterior lateral wall, mild reversible ischemia. TTE LVEF 60% mild left ventricular diastolic dysfunction no valvular dysfunction Patient underwent a C with no intervention patient can follow-up with cardiology as outpatient Qualifiers: Chest pain type: other chest pain Qualified Code(s): R07.89 - Other chest pain; R07.8 - Other chest pain (2) SVT (supraventricular tachycardia) Priority: Primary Status: Acute Comments: Patient's been sinus rhythm-presented in SVT which converted after receiving adenosine 6 mg and then 12 mg. She will follow up with cardiology as outpatient (3) Arthritis Priority: Secondary Status: Chronic (4) GERD (gastroesophageal reflux disease) Priority: Secondary Status: Chronic Qualifiers: Esophagitis presence: esophagitis presence not specified Qualified Code(s) : K21.9 - Gastro-esophageal reflux disease without esophagitis (5) HLD (hyperlipidemia) Priority: Secondary Status: Chronic Qualifiers: Hyperlipidemia type: pure hypercholesterolemia Qualified Code(s): E78.00 - Pure hypercholesterolemia, unspecified; E78.0 - Pure hypercholesterolemia (6) HTN (hypertension) Priority: Secondary Status: Chronic Qualifiers: Hypertension type: essential hypertension Qualified Code(s): I10 - Essential (primary) hypertension (7) Hx of cancer of lung Priority: Secondary Status: Resolved Hospital course: Ms. Dos Santos is a 62 year old female past medical history of arthritis fibromyalgia GERD hyperlipidemia hypertension thyroid nodules history of lung cancer requiring a upper right lobectomy. She initially presented to [facility] ED with chief complaint of heart palpitations and arrhythmia. She had midsternal chest pressure that radiated to bilateral neck and jaws. Upon presentation she was found to be an SVT which converted back to sinus rhythm with 2 rounds of adenosine. Initially her cardiac enzymes were negative however she did have an elevation and was initiated on a heparin drip. She was seen by cardiology and underwent cardiac stress test which was abnormal. Should small sized mild intensity stress perfusion defect involving distal anterior lateral wall, mild reversible ischemia. She then underwent a LHC which was negative for any blockage no intervention was performed. She went through recovery without any incident no hematoma to insertion site. She has hemodynamically stable at this time advised patient to follow-up with cardiology as outpatient she verbalized understanding. Patient is ready for discharge. Discharge discussed with: patient Time spent discussing smoking cessation with patient: 3 to 10 minutes - Time Spent with Patient Total time spent providing and/or coordinating discharge services: - Discharge Medications Home Medications: Amitriptyline [Elavil] 25 mg PO HS 10/21/16 [History] Aspirin 81 mg PO DAILY 10/21/16 [History] Atorvastatin [Lipitor] 40 mg PO HS 10/21/16 [History] Cholecalciferol (Vitamin D3) [Vitamin D3] 1,000 unit PO DAILY 10/21/16 [History] FLUoxetine HCl [Prozac] 20 mg PO DAILY 10/21/16 [History] Lactobacillus Acidophilus [Acidophilus] 1 cap PO DAILY 10/21/16 [History] Meloxicam 15 mg PO DAILY 10/21/16 [History] Mv-Mn/FA/Vit K/Lycop/Lut/Coq10 [Daily Multivitamin Capsule] 1 cap PO DAILY 10/21 [History] Omeprazole [PriLOSEC] 40 mg PO BID 10/21/16 [History] Potassium Chloride [K-Tab ER] 20 meq PO BID 10/21/16 [History] Spironolactone [Aldactone] 50 mg PO DAILY 10/21/16 [History] Calcium Carbonate/Vitamin D3 [Calcium 600-Vit D3 800 Tablet] 1 tab PO BID [History] Calcium Polycarbophil [Fiber-Caps] 625 mg PO BID 11/10/16 [History] [place]-3S/Dha/Epa/Fish Oil [Fish Oil 1,200 mg Softgel] 1 cap PO DAILY 11/10/16 [ History] Albuterol Sulfate [Albuterol Inhaler] 2 puff IH Q6H PRN 12/18/16 [History] DiphenhydraMINE [Benadryl] 25 mg PO Q6HR PRN 02/19/17 [History] Fluticasone Propionate [Flovent Diskus] 2 puff IH DAILY 09/22/17 [History] Ipratropium/Albuterol Neb [Duoneb] 3 ml IH BID 09/22/17 [History] Metoprolol [Lopressor] 50 mg PO DAILY 09/28/17 [History] Umeclidinium Brady [Incruse Ellipta] 1 puff IH DAILY 09/28/17 [History] Allergies/Adverse Reactions: 3 Allergy/AdvReac Type Severity Reaction Status Date / Time Hydromorphone [From Dilaudid] Allergy Difficulty Verified 09/28/17 14:05 Breathing levofloxacin [From Levaquin] Allergy See Verified 09/28/17 14:05 Comments Penicillins Allergy Rash Verified 09/28/17 14:05 Tetracycline Allergy Rash Verified 09/28/17 14:05 acetaminophen [From Vicodin] AdvReac Itching Verified 09/28/17 14:05 codeine AdvReac Itching Verified 09/28/17 14:05 fentanyl AdvReac Itching Verified 09/28/17 14:05 hydrocodone [From Vicodin] AdvReac Itching Verified 09/28/17 14:05 morphine AdvReac Itching Verified 09/28/17 14:05 Date of admission: 09/28/17 14:39 Primary care physician: Veronika Wheatley Consults: 09/28/17 15:35 Consult to Anesthesia Associate [CONS] Routine Reason for SW Consult: Please assess patient for possible home needs for post -discharge planning. 09/30/17 10:26 Consult to Cardiology [CONS] Routine Comment: Consulting Provider: Cardiology Evangelina Reason for Consult: Already consulted, received results of positive stress test. Time Notified: 10:27 Call Completed: Yes Discharging clinician: Ale Catalan Anticipated date of discharge: 09/30/17 - Constitutional Vitals: Temp Pulse Resp BP Pulse Ox 98.2 F 65 16 123/76 96 09/30/17 16:12 09/30/17 16:12 09/30/17 16:12 09/30/17 15:45 09/30/17 15:45 General appearance: Present: cooperative, A&O X 3, morbidly obese, pleasant, no acute distress, answers questions appropriately - Head Head exam: Present: atraumatic, normocephalic - Eye Eye exam: Present: PERRL, conjuntiva pink, sclera anicteric Pupils: Present: PERRL - Neck Neck exam general surgery: Present: supple, trachea midline. Absent: lymphadenopathy - Respiratory Respiratory exam: Present: CTAB. Absent: accessory muscle use, rales, rhonchi, wheezes - Cardiovascular Cardiovascular exam: Present: RRR, +S1, +S2. Absent: diastolic murmur, gallop, rubs, systolic murmur - GI/Abdominal GI/Abdominal exam: Present: normal bowel sounds, soft, no peritoneal signs. Absent: distended, tenderness - Extremities Exam Extremities exam: Present: warm, radial pulses palpable and symmetrical. Absent : calf tenderness, cyanotic, pedal edema - Neurological Exam Neurological exam: Present: CN II-XII intact, oriented X3, no focal deficits. Absent: pronater drift, facial droop, speech deficit - Skin Skin exam: Present: dry, intact - Patient Status Disposition: Home, Self-Care Condition: Fair Functional capacity at discharge: independent ambulation Overall status at discharge: patient is back to baseline - Discharge Instructions Instructions: Chest Pain (DC) Follow Up With: Veronika Wheatley MD [Primary Care Provider] - Jose Marrero [Partnered Physician] - Forms: ED Satisfaction Letter - Diet and Activity Activity: resume usual activities as tolerated Diet: advance to your usual diet
== END 2017-09-30 19:15 | disposition home or self-care (01) ==
LOC: 3BNU 11:26 → EMEROO 11:26 → 3BNU 15:16
PROVIDERS: ADMIT Student in an Organized Health Care Education/Training Program; ATTEND Registered Nurse